=== PATIENT | male | born 1985 | race Caucasian/White ===

== ENCOUNTER 2018-02-14 19:58 | Emergency (ER) | payer OTHER ==
[2018-02-14 20:05] VITALS: BP 166/91; PULSE 84; BMI 39.5
--- NOTE | 2018-02-14 20:13 | PDOC ---
Rapid Medical Evaluation Chief Complaint: Wound Time Seen by Provider: 02/14/18 20:10 Medical Evaluation: Allergies Allergy/AdvReac Type Severity Reaction Status Date / Time No Known Allergies Allergy Verified 02/14/18 20:05 Vital Signs Temp Pulse Resp BP Pulse Ox 84 19 166/91 100 02/14/18 20:02 02/14/18 20:02 02/14/18 20:02 02/14/18 20:02 02/14/18 20:10 I have performed a brief in-person evaluation of this patient. The patient presents with a chief complaint of: scrotal pain x3 days s/p hair removal Pertinent physical exam findings: induration to right scrotal wall. + cremasteric reflex b/l. I have ordered the following: u/s The patient will proceed to the ED for further evaluation. Discharge Disposition - Diagnosis Scrotal pain - Referrals - Patient Instructions - Post Discharge Activity
--- NOTE | 2018-02-14 20:49 | PDOC ---
History of Present Illness - General Chief Complaint: Wound Stated Complaint: SWELLING Time Seen by Provider: 02/14/18 20:10 - History of Present Illness Initial Comments: 02/14/18 20:46 32-year-old male without comorbidities presents for evaluation of swelling of his penis and the painful area on his right scrotum 2 days. He states he was shaving nicked his skin try to remove an ingrown hair with the Please her is and ever since that he's developed swelling about his penis the painful area on his scrotum and tenderness about his right pubic area Past History - Past Medical History Allergies/Adverse Reactions: Allergies Allergy/AdvReac Type Severity Reaction Status Date / Time No Known Allergies Allergy Verified 02/14/18 20:05 Home Medications: Ambulatory Orders Cephalexin [Keflex] 500 mg PO QID #40 capsule 02/14/18 Sulfamethoxazole/Trimethoprim [Bactrim Ds -] 1 tab PO BID #14 tablet 02/14/18 COPD: No - Suicide/Smoking/Psychosocial Hx Smoking History: Former smoker Have you smoked in the past 12 months: No Number of Cigarettes Smoked Daily: 1 Information on smoking cessation initiated: No Hx Alcohol Use: Yes Drug/Substance Use Hx: No Substance Use Type: Alcohol Review of Systems - Review of Systems Constitutional: No: Fever : Yes: See HPI, Pain, Lesions Integumentary: Yes: See HPI, Lesions *Physical Exam - Vital Signs Last Vital Signs Temp Pulse Resp BP Pulse Ox 84 19 166/91 100 02/14/18 20:02 02/14/18 20:02 02/14/18 20:02 02/14/18 20:02 - Physical Exam Comments: 02/14/18 20:48 There is a centimeter area of erythema with superficial lacerations and serous drainage with mild induration without fluctuance on the right scrotum the entire right side of the penis and skin overlying the penis is swollen an edenamous Medical Decision Making - Medical Decision Making 02/14/18 21:18 urology called 02/14/18 21:[address] Hernandez, who reccomends PO ABX and out pt f/u *DC/Admit/Observation/Transfer Diagnosis at time of Disposition: Scrotal pain, Cellulitis - Discharge Dispostion Disposition: HOME Condition at time of disposition: Stable Decision to Admit order: No - Prescriptions Prescriptions: Cephalexin [Keflex] 500 mg PO QID #40 capsule Sulfamethoxazole/Trimethoprim [Bactrim Ds -] 1 tab PO BID #14 tablet - Referrals Referrals: Porfirio Richard MD [Staff Physician] - - Patient Instructions Printed Discharge Instructions: Cellulitis Additional Instructions: Return to the emergency room should she develop further symptoms and inability to urinate. Follow-up with urology in one to 2 days for further evaluation and treatment options. Do not put any ointments or shave the area any more. Tylenol and Motrin for pain. As directed. Please take the antibiotics as directed and finish the entire course - Post Discharge Activity
== END 2018-02-14 21:34 | disposition home or self-care (01) ==
LOC: JERFT 19:58
DX: N49.2 Inflammatory disorders of scrotum (principal); N48.22 Cellulitis of corpus cavernosum and penis
CPT/HCPCS: 76870-TC; 99281-25